=== PATIENT | female | born 1965 | race Caucasian/White ===

== ENCOUNTER → 2017-02-27 | Outpatient (CLI) | payer OTHER | LOC: LAB 12:09 | DX: Z01.812 Encounter for preprocedural laboratory examination (principal); E11.9 Type 2 diabetes mellitus without complications | CPT/HCPCS: 36415; 82565; 84520 ==

== ENCOUNTER → 2017-03-12 | Outpatient (CLI) | payer OTHER | LOC: MRI 09:34 → EMI 11:00 | DX: H53.2 Diplopia (principal); J32.0 Chronic maxillary sinusitis | CPT/HCPCS: 70553; A9577 ==

== ENCOUNTER → 2020-11-08 | Outpatient (CLI) | payer MEDICARE, OTHER ==
[~2020-11-08] MED LIST: ALENDRONATE SOD70 MG PO; ALLERGY RELIEF1 EAC1 PO; AUGMENTIN 875-1 EACH PO; BENTYL 10MG CAP10 MG PO; HYDROCODON-ACE1 EAC4 PO; IMITREX25 MG PO; LIPITOR40 MG PO; LOW DOSE ASPIRI81 MG PO; NEURONTIN100 MG PO; TESSALON PERLE100 MG PO; TOPAMAX100 MG PO; VIBRAMYCIN100 MG PO; VITAMIN D PO
[2020-11-08 13:49] LABS: RED BLOOD COUNT 5.09 M/UL (4.00-5.10); WHITE BLOOD COUNT 8.7 K/UL (4.5-11.0)
[2020-11-08 14:17] LABS: BUN/CREATININE RATIO 21 (0-10)
[2020-11-09 09:15] LABS: THYROXINE (T4) 7.7 ug/dL (4.5-12.0)
== END ==
LOC: LAB 13:05
PROVIDERS: Nurse Practitioner Family
DX: E11.9 Type 2 diabetes mellitus without complications (principal); R53.83 Other fatigue; G43.909 Migraine, unspecified, not intractable, without status migrainosus; E78.5 Hyperlipidemia, unspecified; E55.9 Vitamin D deficiency, unspecified
CPT/HCPCS: 36415; 80053; 80061; 82043; 82570; 83036; 84436; 84443; 84480; 85025

== ENCOUNTER 2020-12-13 16:39 | Emergency (ER) | payer MEDICARE, OTHER ==
[~2020-12-13 16:39] MED LIST changes: -ALENDRONATE SOD70 MG PO; -ALLERGY RELIEF1 EAC1 PO; -BENTYL 10MG CAP10 MG PO; -HYDROCODON-ACE1 EAC4 PO; -IMITREX25 MG PO; -LIPITOR40 MG PO; -LOW DOSE ASPIRI81 MG PO; -NEURONTIN100 MG PO; -TESSALON PERLE100 MG PO; -TOPAMAX100 MG PO; -VITAMIN D PO
[2021-01-26] MEDS ORDERED: LIPITOR40 MG PO (12:48)
[2021-01-26] MEDS ORDERED: HYDROCODON-ACE1 EAC4 PO (12:55)
[2021-01-26] MEDS ORDERED: VITAMIN D PO (13:39)
[2021-01-26] MEDS ORDERED: NEURONTIN100 MG PO (13:39)
[2021-01-26] MEDS ORDERED: ALENDRONATE SOD70 MG PO (13:40)
[2021-01-26] MEDS ORDERED: BENTYL 10MG CAP10 MG PO (13:40)
[2021-01-26] MEDS ORDERED: ALLERGY RELIEF1 EAC1 PO (13:41)
[2021-01-26] MEDS ORDERED: TOPAMAX100 MG PO (13:42)
[2021-01-26] MEDS ORDERED: TESSALON PERLE100 MG PO (13:42)
[2021-01-26] MEDS ORDERED: IMITREX25 MG PO (13:43)
[2021-01-26] MEDS ORDERED: LOW DOSE ASPIRI81 MG PO (13:44)
== END 2020-12-13 18:45 | disposition home or self-care (01) ==
LOC: ER1 16:39
DX: M23.91 Unspecified internal derangement of right knee (principal); M25.461 Effusion, right knee; E78.5 Hyperlipidemia, unspecified; I10 Essential (primary) hypertension; F17.210 Nicotine dependence, cigarettes, uncomplicated
CPT/HCPCS: 73562; 99283

== ENCOUNTER → 2020-12-30 | Outpatient (CLI) | payer MEDICARE, OTHER ==
[~2020-12-30] MED LIST changes: +ALENDRONATE SOD70 MG PO; +ALLERGY RELIEF1 EAC1 PO; +BENTYL 10MG CAP10 MG PO; +HYDROCODON-ACE1 EAC4 PO; +IMITREX25 MG PO; +LIPITOR40 MG PO; +LOW DOSE ASPIRI81 MG PO; +NEURONTIN100 MG PO; +TESSALON PERLE100 MG PO; +TOPAMAX100 MG PO; +VITAMIN D PO
== END ==
LOC: KOH-I 12-16 10:30
DX: M79.661 Pain in right lower leg (principal)
CPT/HCPCS: 93971

== ENCOUNTER → 2021-01-24 | Outpatient (CLI) | payer MEDICARE, OTHER | LOC: KOH-I 08:15 | DX: M23.92 Unspecified internal derangement of left knee (principal); S83.242A Other tear of medial meniscus, current injury, left knee, initial encounter | CPT/HCPCS: 73721 ==

== ENCOUNTER → 2021-01-26 | Outpatient (CLI) | payer MEDICARE, OTHER ==
[2021-01-26 12:41] LABS: HEMOGLOBIN 14.1 gm/dl (12.3-15.3); RED BLOOD COUNT 4.8 M/UL (4.00-5.10); WHITE BLOOD COUNT 9.1 K/UL (4.5-11.0)
[2021-01-26 12:56] LABS: BUN/CREATININE RATIO 21 (0-10)
== END ==
LOC: OPSV2 11:58
PROVIDERS: Anesthesiology Pain Medicine
DX: Z01.818 Encounter for other preprocedural examination (principal)
CPT/HCPCS: 36415; 71046; 80048; 85025; 93005

== ENCOUNTER → 2021-01-27 | Day surgery (SDC) | payer MEDICARE, OTHER | END | disposition home or self-care (01) | LOC: OR 06:10 | DX: G89.29 Other chronic pain (principal); M54.5 Low back pain; M79.606 Pain in leg, unspecified; I95.81 Postprocedural hypotension; M51.16 Intervertebral disc disorders with radiculopathy, lumbar region; M46.86 Other specified inflammatory spondylopathies, lumbar region; M70.61 Trochanteric bursitis, right hip; G43.019 Migraine without aura, intractable, without status migrainosus; Q85.09 Other neurofibromatosis; M79.7 Fibromyalgia; I10 Essential (primary) hypertension; E78.5 Hyperlipidemia, unspecified; F17.210 Nicotine dependence, cigarettes, uncomplicated; E11.9 Type 2 diabetes mellitus without complications; Z91.040 Latex allergy status; Z88.2 Allergy status to sulfonamides; Z88.5 Allergy status to narcotic agent; Z88.6 Allergy status to analgesic agent; Z88.1 Allergy status to other antibiotic agents; Z79.82 Long term (current) use of aspirin; Z79.891 Long term (current) use of opiate analgesic; Z79.899 Other long term (current) drug therapy | CPT/HCPCS: 72070; 76000; 82962; 93005; C1778; C1787; C1820; J1580; J2001; J2250; J2370; J2405; J2704; J3010; J7120; P9045 ==

== ENCOUNTER → 2021-02-24 | Day surgery (SDC) | payer MEDICARE, OTHER | END | disposition home or self-care (01) | LOC: OR 06:11 | PROVIDERS: Anesthesiology Pain Medicine | PROC: 00WU3MZ Revision of Neurostimulator Lead in Spinal Canal, Percutaneous Approach (ICD-10-PCS; principal; 2021-02-24 07:30) | DX: T85.199A Other mechanical complication of other implanted electronic stimulator of nervous system, initial encounter (principal); G89.4 Chronic pain syndrome; M51.16 Intervertebral disc disorders with radiculopathy, lumbar region; E11.9 Type 2 diabetes mellitus without complications; Q85.09 Other neurofibromatosis; M70.61 Trochanteric bursitis, right hip; G43.019 Migraine without aura, intractable, without status migrainosus; M79.7 Fibromyalgia; F17.210 Nicotine dependence, cigarettes, uncomplicated; K21.9 Gastro-esophageal reflux disease without esophagitis; Z20.822 Contact with and (suspected) exposure to COVID-19; Z96.82 Presence of neurostimulator; Z79.899 Other long term (current) drug therapy; Z79.891 Long term (current) use of opiate analgesic; Z79.4 Long term (current) use of insulin; Z88.1 Allergy status to other antibiotic agents; Z88.5 Allergy status to narcotic agent; Z88.6 Allergy status to analgesic agent; Z88.2 Allergy status to sulfonamides; Z91.040 Latex allergy status; Y83.1 Surgical operation with implant of artificial internal device as the cause of abnormal reaction of the patient, or of later complication, without mention of misadventure at the time of the procedure | CPT/HCPCS: 72100; 76000; C1778; J1100; J1170; J1885; J2001; J2250; J2405; J2704; J3010; J3370; J7030; J7120 ==

== ENCOUNTER → 2021-06-29 | Outpatient (CLI) | payer MEDICARE, OTHER ==
[~2021-06-29] MED LIST changes: +ECOTRIN81 MG PO; +ESTRADIOL2 MG PO; +HYDROCODON-ACE1 EAC6 PO; +HYDROXYZINE HCL10 MG PO; +LORATADINE PO; +METFORMIN HCL500 MG PO; +NEURONTIN300 MG PO; +TOPIRAMATE100 MG PO
[2021-06-29 13:48] LABS: HEMOGLOBIN 15.1 gm/dl (12.3-15.3); RED BLOOD COUNT 5.16 M/UL (4.00-5.10); WHITE BLOOD COUNT 9.6 K/UL (4.5-11.0)
[2021-06-29 14:08] LABS: BUN/CREATININE RATIO 18 (0-10)
== END ==
LOC: OPSV2 11:55
PROVIDERS: Orthopaedic Surgery
DX: Z01.818 Encounter for other preprocedural examination (principal); E11.9 Type 2 diabetes mellitus without complications
CPT/HCPCS: 80048; 85025; 93005

== ENCOUNTER → 2021-11-10 | Outpatient (CLI) | payer MEDICARE, OTHER | LOC: RAD 14:07 | DX: M50.30 Other cervical disc degeneration, unspecified cervical region (principal) | CPT/HCPCS: 72050 ==

== ENCOUNTER → 2022-01-11 | Outpatient (CLI) | payer MEDICARE, OTHER ==
[~2022-01-11] MED LIST changes: +CLARITIN10 M2 PO; +QULIPTA60 MG PO; +VITAMIN D350 MCG PO; +ZYRTEC10 M3 PO
== END ==
LOC: OPSV 12:48
DX: M81.0 Age-related osteoporosis without current pathological fracture (principal)
CPT/HCPCS: 96365; J3489

== ENCOUNTER → 2022-01-16 | Outpatient (CLI) | payer MEDICARE, OTHER ==
[2022-01-16 08:58] LABS: BUN/CREATININE RATIO 16 (0-10)
== END ==
LOC: OPSV2 07:18
PROVIDERS: Anesthesiology
DX: Z01.818 Encounter for other preprocedural examination (principal); E11.9 Type 2 diabetes mellitus without complications; I10 Essential (primary) hypertension
CPT/HCPCS: 36415; 80048; 93005

== ENCOUNTER → 2022-01-17 | Day surgery (SDC) | payer MEDICARE, OTHER | END | disposition home or self-care (01) | LOC: OR 05:57 | DX: T85.192A Other mechanical complication of implanted electronic neurostimulator of spinal cord electrode (lead), initial encounter (principal); G89.29 Other chronic pain; M51.36 Other intervertebral disc degeneration, lumbar region; M46.86 Other specified inflammatory spondylopathies, lumbar region; M51.26 Other intervertebral disc displacement, lumbar region; M70.61 Trochanteric bursitis, right hip; G43.019 Migraine without aura, intractable, without status migrainosus; I10 Essential (primary) hypertension; E78.5 Hyperlipidemia, unspecified; Z87.891 Personal history of nicotine dependence; Z88.5 Allergy status to narcotic agent; Z91.040 Latex allergy status; Z88.8 Allergy status to other drugs, medicaments and biological substances; Z79.82 Long term (current) use of aspirin; Z79.899 Other long term (current) drug therapy; Z20.822 Contact with and (suspected) exposure to COVID-19 | CPT/HCPCS: 71045; 72100; 76000; 81001; J1100; J2001; J2250; J2405; J2704; J3010; J7030; J7120 ==

== ENCOUNTER → 2022-04-09 | Outpatient (CLI) | payer MEDICARE, OTHER | LOC: RAD 10:18 | DX: M54.6 Pain in thoracic spine (principal); M47.814 Spondylosis without myelopathy or radiculopathy, thoracic region | CPT/HCPCS: 72070 ==

== ENCOUNTER → 2022-04-18 | Outpatient (CLI) | payer MEDICARE, OTHER | LOC: KOH-I 10:57 | DX: J32.9 Chronic sinusitis, unspecified (principal); J33.9 Nasal polyp, unspecified | CPT/HCPCS: 70486 ==